=== PATIENT | female | born 1980 | race Caucasian/White ===

== ENCOUNTER 2019-06-30 12:57 | Emergency (ER) | payer OTHER ==
[2019-06-30 13:09] VITALS: TEMP 98.9; BMI 26.6
[2019-06-30] MEDS ORDERED: SODIUM CHLORIDE 1,000 ML IV STA (14:30)
[2019-06-30] MEDS ORDERED: KETOROLAC TROMETHAMINE 30 MG/1 ML VIAL IVPUSH ONE (14:30)
[2019-06-30] MEDS ORDERED: METOCLOPRAMIDE HCL INJECTION 10 MG/2 ML VIAL IVPUSH ONE (14:30)
--- NOTE | 2019-06-30 15:40 | PDOC ---
History of Present Illness - General Chief Complaint: Chest Pain Stated Complaint: HEADACHE Time Seen by Provider: 06/30/19 13:14 History Source: Patient Exam Limitations: No Limitations - History of Present Illness Initial Comments: 06/30/19 14:15 39 y/o female with history of headaches and anemia secondary to prolonged menstrual cycles presents to ED with complaints of mild generalized fatigue, headache, chest soreness, and intermittent shortness of breath with exertion over the past few weeks. Patient states was here approximately 5 months ago was admitted for similar symptoms. Patient states was told to take her iron tablets which she has been taking but did not follow-up with a neurologist or optical glass inspector since discharge. Patient states her menstrual cycle began June 04 and has been continuous with light to heavy flow. Patient denies palpitations, dizziness, visual changes, fever, chills, shortness of breath at rest, abdominal pain, nausea, vomiting, or diarrhea Timing/Duration: changing over time Severity: moderate Associated Symptoms: reports: headaches, malaise, shortness of breath, weakness Past History - Travel Traveled outside of the country in the last 30 days: No Close contact w/someone who was outside of country & ill: No - Past Medical History Allergies/Adverse Reactions: Allergies Allergy/AdvReac Type Severity Reaction Status Date / Time No Known Allergies Allergy Unverified 06/30/19 13:06 Anemia: Yes - Reproductive History LMP Normal: No - Suicide/Smoking/Psychosocial Hx Smoking History: Never smoked Hx Alcohol Use: No Drug/Substance Use Hx: No Patient Lives Alone: No Lives with/in: single parent(s) Review of Systems - Review of Systems Able to Perform ROS?: Yes Constitutional: Yes: Malaise, Weakness HEENTM: No: Symptoms Reported Respiratory: Yes: SOB with Exertion Cardiac (ROS): No: Symptoms Reported ABD/GI: No: Symptoms Reported : No: Symptoms Reported Musculoskeletal: No: Symptoms Reported Integumentary: No: Symptoms Reported Neurological: Yes: Weakness Hematologic/Lymphatic: Yes: Anemia *Physical Exam - Vital Signs Last Vital Signs Temp Pulse Resp BP Pulse Ox 98.9 F 58 L 18 104/63 99 06/30/19 13:07 06/30/19 13:07 06/30/19 13:07 06/30/19 13:07 06/30/19 13:07 - Physical Exam General Appearance: Yes: Nourished, Appropriately Dressed. No: Apparent Distress HEENT: positive: EOMI, TMs Normal, Pharynx Normal, Pale Conjunctivae Neck: positive: Normal Thyroid, Supple Respiratory/Chest: positive: Lungs Clear, Normal Breath Sounds. negative: Respiratory Distress, Accessory Muscle Use Cardiovascular: positive: Regular Rhythm, Regular Rate. negative: Murmur Gastrointestinal/Abdominal: positive: Soft. negative: Tenderness Integumentary: positive: Normal Color, Warm, Pale (mild to bilateral hands) Neurologic: positive: Motor Strength 5/5 (ambulatory) Heart Score/ECG Review - ECG Intrepretation Rhythm: Regular Rhythm (Sinus bradycardia at [address] elevation or depression. Intervals are regular.) ED Treatment Course - LABORATORY CBC & Chemistry Diagram: 06/30/19 16:25 06/30/19 16:25 Medical Decision Making - Medical Decision Making 06/30/19 14:39 Chief complaint: Fatigue, headache, shortness of breath with exertion and mild chest soreness. Menses 3 weeks. History of anemia currently on iron tablets Exam: Pale conjunctiva vital signs stable EKG normal sinus ectro at 55 Plan: Labs, IV fluids, Reglan, Toradol type and screen 06/30/19 15:43 *DC/Admit/Observation/Transfer Diagnosis at time of Disposition: Malaise Chest pain Qualifiers: Chest pain type: unspecified Qualified Code(s): R07.9 - Chest pain, unspecified Headache Qualifiers: Headache type: unspecified Headache chronicity pattern: unspecified pattern Intractability: not intractable Qualified Code(s): R51 - Headache - Discharge Dispostion Disposition: HOME Condition at time of disposition: Improved - Referrals - Patient Instructions Printed Discharge Instructions: DI for Headache, DI for Chest Pain Additional Instructions: Thank you for choosing [facility]. It was a pleasure taking care of you. There was no evidence of anemia on your blood work Continue follow-up with your primary care doctor and vendor analyst Return to the Emergency Department if your symptoms worsen or persist or have other concerning symptoms. Red por elegir el [facility]. Fue un placer cuidar de ti. No hubo evidencia de anemia en aquino anlisis de [place]. Contine el seguimiento con aquino mdico de atencin primaria y gineclogo. Regrese al departamento de emergencias si barbara sntomas empeoran o persisten o si tiene otros sntomas preocupantes. Print Language: MEXICAN - Post Discharge Activity
[2019-06-30] MEDS ORDERED: METOCLOPRAMIDE HCL INJECTION 10 MG/2 ML VIAL ONE (15:50)
[2019-06-30] MEDS ORDERED: KETOROLAC TROMETHAMINE 30 MG/1 ML VIAL ONE (15:51)
[2019-06-30 17:07] LABS: BASO % 1.2 % (0-2.0); EOS % 0.3 % (0-4.5); HEMATOCRIT 34.6 % (32.4-45.2); HEMOGLOBIN 11.3 GM/dL (10.7-15.3); LYMPH % 19.9 % (8-40); MCH 27.1 pg (25.7-33.7); MCHC 32.8 g/dl (32.0-36.0); MEAN CELL VOLUME 82.8 fl (80-96); MEAN PLT VOLUME 9.2 fl (7.5-11.1); MONO % 4.8 % (3.8-10.2); NEUT % 73.8 % (42.8-82.8); PLATELET COUNT 332 K/MM3 (134-434); RBC 4.17 M/mm3 (3.60-5.2); RDW 13.7 % (11.6-15.6); WHITE BLOOD COUNT 7.5 K/mm3 (4.0-10.0)
[2019-06-30 17:47] LABS: ALBUMIN 3.4 g/dl (3.4-5.0); ALK PHOS 60 U/L (45-117); ANION GAP 5 MMOL/L (8-16); BILIRUBIN,TOTAL 1.1 mg/dL (0.2-1); BLOOD UREA NITROGEN 9.7 mg/dL (7-18); CALCIUM 8.4 mg/dL (8.5-10.1); CHLORIDE 112 mmol/L (98-107); CO2 27 mmol/L (21-32); CREATININE 0.6 mg/dL (0.55-1.3); GLUCOSE,RANDOM 87 mg/dL (74-106); POTASSIUM 4.3 mmol/L (3.5-5.1); SGOT/AST 17 U/L (15-37); SGPT/ALT 17 U/L (13-61); SODIUM 143 mmol/L (136-145); TOT PROT 6.8 g/dl (6.4-8.2)
--- NOTE | 2019-06-30 18:14 | PDOC ---
*Physical Exam - Vital Signs Last Vital Signs Temp Pulse Resp BP Pulse Ox 98.9 F 58 L 18 104/63 99 06/30/19 13:07 06/30/19 13:07 06/30/19 13:07 06/30/19 13:07 06/30/19 13:07 ED Treatment Course - LABORATORY CBC & Chemistry Diagram: 06/30/19 16:25 06/30/19 16:25 - ADDITIONAL ORDERS Additional order review: Laboratory Results 06/30/19 06/30/19 16:25 16:25 Sodium 143 Potassium 4.3 Chloride 112 H Carbon Dioxide 27 Anion Gap 5 L BUN 9.7 Creatinine 0.6 Est GFR (CKD-EPI)AfAm 134.96 Est GFR (CKD-EPI)NonAf 116.44 Random Glucose 87 Calcium 8.4 L Total Bilirubin 1.1 H AST 17 ALT 17 Alkaline Phosphatase 60 Creatine Kinase 78 Troponin I < 0.02 Total Protein 6.8 Albumin 3.4 Blood Type O POSITIVE Antibody Screen Negative 06/30/19 16:25 RBC 4.17 MCV 82.8 MCHC 32.8 RDW 13.7 MPV 9.2 Neutrophils % 73.8 Lymphocytes % 19.9 Monocytes % 4.8 Eosinophils % 0.3 Basophils % 1.2 Medical Decision Making - Medical Decision Making Patient signed out to me by ESTEBAN Brown Patient pending labs Labs reviewed and unremarkable; no evidence of anemia On reassessment, patient feeling much better after meds received Stable for dc 06/30/19 18:12 *DC/Admit/Observation/Transfer Diagnosis at time of Disposition: Malaise Chest pain Qualifiers: Chest pain type: unspecified Qualified Code(s): R07.9 - Chest pain, unspecified Headache Qualifiers: Headache type: unspecified Headache chronicity pattern: unspecified pattern Intractability: not intractable Qualified Code(s): R51 - Headache - Discharge Dispostion Disposition: HOME Condition at time of disposition: Improved Decision to Admit order: No - Referrals - Patient Instructions Printed Discharge Instructions: DI for Chest Pain, DI for Headache Additional Instructions: Thank you for choosing [facility]. It was a pleasure taking care of you. There was no evidence of anemia on your blood work Continue follow-up with your primary care doctor and director clinical pharmacology Return to the Emergency Department if your symptoms worsen or persist or have other concerning symptoms. Red christensenir el [facility]. Fue un placer cuidar de ti. No hubo evidencia de anemia en aquino anlisis de [place]. Contine el seguimiento con aquino mdico de atencin primaria y gineclogo. Regrese al departamento de emergencias si barbara sntomas empeoran o persisten o si tiene otros sntomas preocupantes. Print Language: AMERICAN - Post Discharge Activity
[2019-06-30 19:14] VITALS: BP 94/62; PULSE 52
--- NOTE | 2019-07-01 11:36 | EKG ---
Test Reason : Blood Pressure : / mmHG Vent. Rate : 055 BPM Atrial Rate : 055 BPM P-R Int : 164 ms QRS Dur : 078 ms QT Int : 440 ms P-R-T Axes : 055 012 016 degrees QTc Int : 420 ms SINUS BRADYCARDIA OTHERWISE NORMAL ECG NO PREVIOUS ECGS AVAILABLE Confirmed by TREVOR PATEL MD ([id number]) on 07/01/2019 11:35:37 AM Referred By: Confirmed By:TREVOR PATEL MD
== END 2019-06-30 19:10 | disposition home or self-care (01) ==
LOC: JER 12:57
PROC: 3E0333Z Introduction of Anti-inflammatory into Peripheral Vein, Percutaneous Approach (ICD-10-PCS; principal; 2019-06-30)
PROC: 3E0337Z Introduction of Electrolytic and Water Balance Substance into Peripheral Vein, Percutaneous Approach (ICD-10-PCS; 2019-06-30)
PROC: 3E033GC Introduction of Other Therapeutic Substance into Peripheral Vein, Percutaneous Approach (ICD-10-PCS; 2019-06-30)
DX: R07.89 Other chest pain (principal); R53.81 Other malaise; R51 Headache
CPT/HCPCS: 36415; 80053; 82550; 84484; 85025; 86850; 86900; 86901; 93005; 93010; 96361; 96374; 96375; 99284-25; J7030